=== PATIENT | female | born 1970 | race Caucasian/White ===

== ENCOUNTER 2018-02-03 01:09 | Inpatient (IN) | payer OTHER ==
[2018-02-03] VITALS (7 sets, daily range): BP systolic 132–155; BP diastolic 67–94; Ht 157.5 cm; Wt 97.2 kg
[~2018-02-03] VITALS: Ht 157.5 cm; Wt 97.2 kg
[2018-02-03 02:23] LABS: BASOPHIL % 0.3 % (0-2); RED CELL DISTRIBUTION WIDTH 13.3 % (11.5-14.5)
[2018-02-03 02:25] LABS: PLATELET COUNT 426 x10^3mcL (130-400)
[2018-02-03 02:26] LABS: CALCIUM 8.8 mg/dL (8.5-10.1); CARBON DIOXIDE 25.2 mmol/L (21-32); CHLORIDE SERUM 95 mmol/L (98-107); CREATININE SERUM 0.9 mg/dL (0.6-1.0); GFR1 > 60 mL/min; GLUCOSE SERUM 182 mg/dL (74-106); POTASSIUM SERUM 3.1 mmol/L (3.5-5.1); SODIUM SERUM 134 mmol/L (136-145)
[2018-02-03 02:33] LABS: ALKALINE PHOSPHATASE 107 U/L (46-116); ALT/SGPT 19 U/L (14-59); AST/SGOT 16 U/L (15-37); BILIRUBIN TOTAL 0.2 mg/dL (0.20-1.00); TOTAL PROTEIN, SERUM 7.7 g/dL (6.4-8.2)
[2018-02-03 02:36] LABS: ALBUMIN 3.2 g/dL (3.4-5.0)
[2018-02-03 02:45] LABS: UA SPECIFIC GRAVITY <=1.005 (1.005-1.035); microscopic required? YES; urine erythrocyte NEGATIVE (NEGATIVE)
[2018-02-03 02:53] LABS: AMPHETAMINE QUAL UR NONE DETECTED (See below)
[2018-02-03] MEDS ORDERED: METFORMIN HYDR500 M1 PO (03:31)
[2018-02-03] MEDS ORDERED: HYDROCHLOROTHIA25 MG PO (04:05)
[2018-02-03] MEDS ORDERED: LOSARTAN POTASS25 M1 PO (04:05)
[2018-02-03] MEDS ORDERED: LANTI (04:06)
[2018-02-03] MEDS ORDERED: VICTOZA6 MG/M1 (04:06)
[2018-02-03] MEDS ORDERED: TOPROL XL25 MG PO (04:06)
[2018-02-03 04:13] LABS: T3 TOTAL 1.05 ng/mL
[2018-02-03 04:15] LABS: CHOLESTEROL/HDL RATIO 3.2; MAGNESIUM 1.4 mg/dL (1.8-2.4); PHOSPHOROUS 4.2 mg/dL (2.5-4.9)
[2018-02-03 04:26] LABS: FREE T4 1.32 ng/dL (0.76-1.46); FREE THYROXINE INDEX 3.2 ug/dL (1.4-4.5); T4(THYROXINE) 9.6 ug/dL (4.7-13.3)
[2018-02-03 07:26] LABS: BASOPHIL % 0.2 % (0-2); PLATELET COUNT 371 x10^3mcL (130-400); RED CELL DISTRIBUTION WIDTH 13.7 % (11.5-14.5)
[2018-02-03 08:47] LABS: CALCIUM 8.4 mg/dL (8.5-10.1); CARBON DIOXIDE 24.2 mmol/L (21-32); CHLORIDE SERUM 99 mmol/L (98-107); CREATININE SERUM 0.9 mg/dL (0.6-1.0); GFR1 > 60 mL/min; GLUCOSE SERUM 195 mg/dL (74-106); POTASSIUM SERUM 4.7 mmol/L (3.5-5.1); SODIUM SERUM 135 mmol/L (136-145)
[2018-02-04 06:02] VITALS: BP 133/90
[2018-02-04 06:41] LABS: BASOPHIL % 0.4 % (0-2); PLATELET COUNT 375 x10^3mcL (130-400); RED CELL DISTRIBUTION WIDTH 14.1 % (11.5-14.5)
[2018-02-04 06:57] LABS: CALCIUM 8.8 mg/dL (8.5-10.1); CARBON DIOXIDE 24.3 mmol/L (21-32); CHLORIDE SERUM 106 mmol/L (98-107); CREATININE SERUM 0.8 mg/dL (0.6-1.0); GFR1 > 60 mL/min; GLUCOSE SERUM 137 mg/dL (74-106); MAGNESIUM 1.7 mg/dL (1.8-2.4); POTASSIUM SERUM 3.7 mmol/L (3.5-5.1); SODIUM SERUM 144 mmol/L (136-145)
[2018-02-04 08:33] VITALS: BP 132/83
[2018-02-04 13:20] VITALS: BP 138/89
[2018-02-04] MEDS ORDERED: LIPITOR80 MG PO (16:25)
[2018-02-04] MEDS ORDERED: ASPIRIN ADULT L81 M5 PO (16:26)
[2018-02-04 16:52] VITALS: BP 138/84
[2018-02-04 18:22] VITALS: BP 138/84
[2018-02-05] MEDS ORDERED: ATORVASTATIN CA40 M1 PO (14:51)
== END 2018-02-04 18:55 | disposition home or self-care (01) | DRG 69 ==
LOC: ED 01:09 → DU 03:06
PROVIDERS: Emergency Medicine; Family Medicine
DX: G45.9 Transient cerebral ischemic attack, unspecified (principal); N39.0 Urinary tract infection, site not specified; E46 Unspecified protein-calorie malnutrition; E83.42 Hypomagnesemia; E87.6 Hypokalemia; D47.3 Essential (hemorrhagic) thrombocythemia; I10 Essential (primary) hypertension; E11.65 Type 2 diabetes mellitus with hyperglycemia; R29.700 NIHSS score 0; Z79.82 Long term (current) use of aspirin; Z79.4 Long term (current) use of insulin; Z68.38 Body mass index [BMI] 38.0-38.9, adult; Z79.84 Long term (current) use of oral hypoglycemic drugs
CPT/HCPCS: 82962; 83880; 84439; A9577; G0480; J0696; J3480; J7030; Q0092; Q9967